=== PATIENT | male | born 1950 | race Caucasian/White ===

== ENCOUNTER 2020-08-03 01:15 | Day surgery (SDC) | payer MEDICARE, SELFPAY ==
[2020-07-22 10:58] VITALS: BMI 25.2
[2020-08-03 11:55] VITALS: BP 142/91; PULSE 79; RESP 16; TEMP 36.4; O2SAT 100; BMI 23.7
[2020-08-03] MEDS: LACTATED RINGERS 1,000 ML 150 ML IV CONT (12:06)
[2020-08-03 12:15] LABS: Glucose Point of Care 100 (65-105)
--- NOTE | 2020-08-03 12:47 | WPDANESEPPF ---
Anes - Initial Pre Proc Eval Procedure: Operation Date: 08/03/20 12:30 Proposed Procedures p Screening Colonoscopy - Jerel Borja MD Date/Time: 08/03/20 12:47 Surgeon: Jerel Borja MD Pre Op Diagnosis: neoplasm screen Patient Data Age: 69 Gender: M Height: 5 ft 8 in Weight: 70.8 kg Last Vital Signs Temp 36.4 C 08/03/20 11:55 Pulse 79 08/03/20 11:55 Resp 16 08/03/20 11:55 BP 142/91 H 08/03/20 11:55 Pulse Ox 100 08/03/20 11:55 Allergies Allergy/AdvReac Type Severity Reaction Status Date / Time Sulfa (Sulfonamide Allergy Intermediate Hives Verified 08/03/20 11:52 Antibiotics) Home Medications Medication Instructions Recorded Confirmed Type ascorbic acid (vitamin C) 1,000 mg 1 mg PO DAILY 07/01/19 07/22/20 History tablet aspirin 81 mg tablet,delayed 81 mg PO DAILY 07/01/19 07/22/20 History release desoximetasone 0.25 % topical cream 1 applic TOPICAL BID PRN 07/01/19 07/22/20 History omega-3 fatty acids 1,000 mg 1,000 mg PO BID 07/01/19 07/22/20 History capsule cholecalciferol (vitamin D3) 25 25 mcg PO DAILY 01/01/20 07/22/20 History mcg (1,000 unit) tablet lactobacillus combination no.8 3 3,000 mmu cells PO DAILY 01/01/20 07/22/20 History billion cell capsule rvkaifcn-feu-qaxhz acid 300 1 tablet PO DAILY 01/01/20 07/22/20 History mcg-lycopene 600 mcg-lutein 300 mcg tablet alprazolam 0.5 mg tablet 0.5 mg PO TID PRN #90 tablet 02/09/20 07/22/20 Rx empagliflozin 10 mg tablet 10 mg PO DAILY #90 tablet 04/04/20 07/22/20 Rx lisinopril 10 mg tablet 10 mg PO DAILY #90 tablet 05/25/20 08/03/20 Rx blood sugar diagnostic #360 each 06/02/20 07/19/20 Rx atorvastatin 80 mg PO HS 07/22/20 07/22/20 History carvedilol 25 mg PO BID 07/22/20 08/03/20 History glimepiride 2 mg PO QAM 07/22/20 07/22/20 History sitagliptin-metformin [Janumet] 1 tablet PO BID 07/22/20 07/22/20 History sodium,potassium,mag sulfates See Rx Instructions .ROUTE 07/22/20 Rx [Suprep Bowel Prep Kit] .COMPLEX #1 ml Laboratory Tests 08/03/20 12:10 POC Capillary Glucose 100 mg/dl mg/dl (65-105) Patient hx anesthesia problems: none Family hx anesthesia problems: none [facility] Surgical History Surgical History (Updated 08/03/20 @ 12:47 by Connor Cantrell MD) Hx of CABG Family History Family History Mother Carcinoma of colon Father Family history of dementia Acute myocardial infarction Grandparent Family history of heart disease in male family member before age 55 Social History Social History Smoking packs per day: 2 Smoking cigarettes per day: 40.0 Years smoked: 7 Smoking pack-years: 14.00 Smoking status: Current every day smoker Tobacco type: cigarettes Smoking end date: 06/24/89 Alcohol intake: never Substance use: never Substance use type: does not use Living arrangements: with family Spiritual care concerns: No Anes - Eval Final PreProcedure Day of Procedure 08/03/20 12:47 Patient weight: normal Heart: regular rate and rhythm Lungs: clear to auscultation Airway: Mallampati scale class II Neurological: alert and oriented Last oral intake: >/= 8 hours ASA classification: III Emergent: no Anesthetic plan: proceed Anesthesia type and monitoring: general GIVS and standard monitoring Informed Consent: The patient's anesthetic plan and its attendant risks and benefits were discussed with the patient/family/POA. Questions were solicited and answers provided to the satisfaction of the patient/family/POA.
--- NOTE | 2020-08-03 13:38 | PM.HPGS ---
History of Present Illness History of Present Illness Consent: Risks, benefits, and alternatives have been discussed and questions answered. Patient agrees to proceed with procedure. Chief complaint: neoplasm screen Narrative: Robert Escalera is a 69 year old male here for screening colonoscopy Review of Systems Constitutional: Constitutional: Denies headache(s) and Denies weakness Eyes: Eyes: Denies blurry vision ENT: Reports Normal hearing present, Denies headache(s) and Denies neck pain Cardiovascular: Cardiovascular: Denies chest pain and Denies dyspnea Respiratory: Respiratory: Denies dyspnea Gastrointestinal: Gastrointestinal: Reports no additional gastrointestinal complaints Genitourinary: Genitourinary: Denies dysuria Musculoskeletal: Musculoskeletal: Denies neck pain Integumentary/Breasts: Skin/Breast: Denies dry skin Neurologic: Reports Normal hearing present, Denies headache(s) and Denies weakness Psychiatric: Psychiatric: Denies anxiety Endocrine: Endocrine: Denies change in body appearance Hematologic/Lymphatic: Hematologic/Lymphatic: Denies easy bleeding Allergic/Immunologic: Allergic/Immunologic: Denies urticaria [facility] Surgical History Surgical History (Updated 08/03/20 @ 12:47 by Connor Cantrell MD) Hx of CABG Family History Family History Mother Carcinoma of colon Father Family history of dementia Acute myocardial infarction Grandparent Family history of heart disease in male family member before age 55 Social History Social History Smoking packs per day: 2 Smoking cigarettes per day: 40.0 Years smoked: 7 Smoking pack-years: 14.00 Smoking status: Current every day smoker Tobacco type: cigarettes Smoking end date: 06/24/89 Alcohol intake: never Substance use: never Substance use type: does not use Living arrangements: with family Spiritual care concerns: No Meds Home Medications and Allergies Home Medications Medication Instructions Recorded Confirmed Type ascorbic acid (vitamin C) 1,000 mg 1 mg PO DAILY 07/01/19 07/22/20 History tablet aspirin 81 mg tablet,delayed 81 mg PO DAILY 07/01/19 07/22/20 History release desoximetasone 0.25 % topical cream 1 applic TOPICAL BID PRN 07/01/19 07/22/20 History omega-3 fatty acids 1,000 mg 1,000 mg PO BID 07/01/19 07/22/20 History capsule cholecalciferol (vitamin D3) 25 25 mcg PO DAILY 01/01/20 07/22/20 History mcg (1,000 unit) tablet lactobacillus combination no.8 3 3,000 mmu cells PO DAILY 01/01/20 07/22/20 History billion cell capsule nmkwauwf-ynd-eqggx acid 300 1 tablet PO DAILY 01/01/20 07/22/20 History mcg-lycopene 600 mcg-lutein 300 mcg tablet alprazolam 0.5 mg tablet 0.5 mg PO TID PRN #90 tablet 02/09/20 07/22/20 Rx empagliflozin 10 mg tablet 10 mg PO DAILY #90 tablet 04/04/20 07/22/20 Rx lisinopril 10 mg tablet 10 mg PO DAILY #90 tablet 05/25/20 08/03/20 Rx blood sugar diagnostic #360 each 06/02/20 07/19/20 Rx atorvastatin 80 mg PO HS 07/22/20 07/22/20 History carvedilol 25 mg PO BID 07/22/20 08/03/20 History glimepiride 2 mg PO QAM 07/22/20 07/22/20 History sitagliptin-metformin [Janumet] 1 tablet PO BID 07/22/20 07/22/20 History sodium,potassium,mag sulfates See Rx Instructions .ROUTE 07/22/20 Rx [Suprep Bowel Prep Kit] .COMPLEX #1 ml Allergies Allergy/AdvReac Type Severity Reaction Status Date / Time Sulfa (Sulfonamide Allergy Intermediate Hives Verified 08/03/20 11:52 Antibiotics) Vital Signs Vital Signs - 24 hr 08/03/20 11:55 Temperature 97.6 F Pulse Rate 79 Respiratory Rate 16 Blood Pressure 142/91 H Pulse Oximetry 100 Exam Const: General: comfortable and no acute distress HENMT: General nose exam: Normal nares present Eyes: General: appearance normal, both eyes and all related structures Neck: Neck: no JVD Resp: Aus
[2020-08-03 14:03] VITALS: BP 119/64; PULSE 81; RESP 23; O2SAT 97
[2020-08-03 14:13] VITALS: BP 125/77; PULSE 80; RESP 25; O2SAT 98
[2020-08-03 14:23] VITALS: BP 139/77; PULSE 80; RESP 26; O2SAT 97
== END 2020-08-03 14:44 | disposition home or self-care (01) ==
PROVIDERS: PCP Internal Medicine; Visit Provider Internal Medicine Gastroenterology
PROC: 0DJD8ZZ Inspection of Lower Intestinal Tract, Via Natural or Artificial Opening Endoscopic (ICD-10-PCS; CPT 45378; principal; 2020-08-03 12:30)
DX: Z12.11 Encounter for screening for malignant neoplasm of colon (principal); K63.5 Polyp of colon; K57.30 Diverticulosis of large intestine without perforation or abscess without bleeding; Z79.84 Long term (current) use of oral hypoglycemic drugs; Z95.1 Presence of aortocoronary bypass graft; Z79.82 Long term (current) use of aspirin; F17.210 Nicotine dependence, cigarettes, uncomplicated
CPT/HCPCS: 45385; 82948; 88305; J2704; J7120

== ENCOUNTER 2022-10-02 03:56 | Inpatient (IN) | payer MEDICARE, SELFPAY ==
[2022-10-02] VITALS (37 sets, daily range): BP systolic 105–179; BP diastolic 48–119; PULSE 64–181; RESP 16–29; TEMP 35.8–37.2; O2SAT 90–100; BMI 22.0
--- NOTE | ~2022-10-02 | MR_ITS ---
EXAMINATION: MR brain/brain stem wo/w con DATE: 10/02/2022 15:21 INDICATION: Aphasia. TECHNIQUE: Magnetic resonance imaging (MRI) of the brain and brainstem was performed without and with 14 mL MultiHance intravenous contrast. COMPARISON: Head CT 10/02/2022 FINDINGS: There are scattered areas of nonspecific increased T2-weighted signal intensity in the cere bral white matter, which is within normal limits for the patient's age. There is no intracranial hemo rrhage, acute infarction, or abnormal intracranial mass lesion. The ventricles are normal in size. Th e mastoid air cells are normal. The orbits are normal. There is mild mucosal thickening in the [place]ia sinuses. IMPRESSION: 1. Normal aging brain. Reviewed, dictated and finalized at location A. IMPRESSION: 1. Normal aging brain.
--- NOTE | ~2022-10-02 | XR_ITS ---
Portable chest x-ray Comparison: None Clinical History: Shortness of breath Findings: Lungs are clear, without focal consolidation or pleural effusion. Cardiomediastinal silho uette is unremarkable, status post CABG. Bones and soft tissues are unremarkable. Impression: Clear lungs. Status post CABG. Reviewed, dictated and finalized at location . Impression: Clear lungs. Status post CABG.
--- NOTE | ~2022-10-02 | CT_ITS ---
Non-contrast Head CT History: Seizure Technique: Axial non-contrast imaging of the brain was performed. Dose reduction technique was used on this scan by utilizing automated exposure control and iterative reconstruction technique. The dose -length product (DLP) was 756.67 mGy-cm. Findings: There is no evidence of intracranial hemorrhage, mass lesion, or acute infarct. Brain par enchyma appears normal. The ventricles and subarachnoid spaces are normal in size. The calvarium ap pears normal. The visualized paranasal sinuses and mastoid air cells are clear. Impression: No significant abnormality seen. Reviewed, dictated and finalized at location . Impression: No significant abnormality seen.
--- NOTE | ~2022-10-02 | US_ITS ---
US right upper quadrant INDICATION: Hyperammonemia PROCEDURE: Realtime right upper abdominal ultrasound. COMPARISON: No prior studies for comparison. FINDINGS: Pancreas is not well visualized. Liver echotexture is normal without focal mass or intrahe patic biliary dilatation. There is normal directional flow in the portal vein. Gallbladder is surgically absent. Common bile duct measures 7 mm. IMPRESSION: 1: Unremarkable limited abdominal ultrasound. Reviewed, dictated and finalized at location L.
--- NOTE | 2022-10-02 03:57 | PC.NURSE ---
0357 pt. given 2 mg ivp Ativan vorb
--- NOTE | 2022-10-02 04:01 | ECG_ITS ---
Measurements Intervals [place] Rate: 115 P: DC: 0 QRS: 61 QRSD: 90 T: 143 QT: 288 QTc: 399 Interpretive Statements ATRIAL FIBRILLATION WITH RAPID VENTRICULAR RESPONSE ST AND T-WAVE ABNORMALITY CONSIDER SUBENDOMYOCARDIAL ISCHEMIA ABNORMAL ECG NO PREVIOUS ECG AVAILABLE FOR COMPARISON Electronically Signed On 10-02-2022 16:15:09 CDT by Thanh Barfield M.D.
[2022-10-02 04:06] LABS: Glucose Point of Care 433 mg/dl (65-105)
[2022-10-02] MEDS: dilTIAZem HCl INJ 25 MG/5 ML VIAL 10 MG IV PUSH (04:10)
--- NOTE | 2022-10-02 04:13 | PC.NURSE ---
pt.. getting 1L NS from ems.
--- NOTE | 2022-10-02 04:17 | ED.SOB ---
HPI - SOB/Dyspnea General Chief Complaint: Shortness of Breath/Dyspnea Stated Complaint: choking Time Seen by Provider: 10/02/22 04:01 History of Present Illness HPI Narrative: 72-year-old male with history of diabetes, hypertension, cardiac bypass x5 presenting from home due to shortness of breath. History obtained from paramedics as well as who witnessed the event, per she heard him brushing his teeth and then start making strange gasping noises, she was able to get him to open the door and he was still gasping so she called an ambulance for him. Per EMS, patient had been feeling much better on the ambulance, talking normally, and then upon arrival here, patient started having a seizure. Per , he had self diagnosed himself with a UTI because he was having some trouble urinating, and have been started on Keflex by his doctor which he had finished. No history of seizures. Per , he does have prescription for anxiolytics but he does not take them frequently. Related Data Home Medications Medication Instructions Recorded Confirmed ascorbic acid (vitamin C) 1,000 mg 1 mg PO DAILY 07/01/19 04/24/22 tablet aspirin 81 mg tablet,delayed 81 mg PO DAILY 07/01/19 04/24/22 release (Aspir-) desoximetasone 0.25 % topical cream 1 applic topical BID PRN Rash 07/01/19 04/24/22 omega-3 fatty acids 1,000 mg 1,000 mg PO BID 07/01/19 04/24/22 capsule (Fish Oil Concentrate) cholecalciferol (vitamin D3) 25 25 mcg PO DAILY 01/01/20 04/24/22 mcg (1,000 unit) tablet lactobacillus combination no.8 3 3,000 mmu cells PO DAILY 01/01/20 04/24/22 billion cell capsule (Adult Probiotic) kutzccvg-nta-urgfn acid 300 1 tablet PO DAILY 01/01/20 04/24/22 mcg-lycopene 600 mcg-lutein 300 mcg tablet (Centrum Silver Ultra Men's) Allergies Allergy/AdvReac Type Severity Reaction Status Date / Time Sulfa (Sulfonamide Allergy Intermediate Hives Verified 10/02/22 05:30 Antibiotics) Review of Systems Review of Systems: ROS unobtainable: Yes unobtainable due to mental status PMFSH Past Medical History Medical History (Updated 10/02/22 @ 06:03 by Bing Winn MD) Type 2 diabetes mellitus without complications Surgical History Surgical History Hx of CABG Family History Family History Mother Carcinoma of colon Father Family history of dementia Acute myocardial infarction Grandparent Family history of heart disease in male family member before age 55 Social History Social History Smoking packs per day: 2 Smoking cigarettes per day: 40.0 Years smoked: 7 Smoking pack-years: 14.00 Smoking status: Former smoker Tobacco type: cigarettes Second hand tobacco smoke exposure: Yes Smoking end date: 06/24/89 Alcohol intake: never Substance use: never Substance use type: does not use Lack of Transportation: No Lack of Food: Never True Current Housing: I Have Housing Concerned About Future Housing: No Difficulty Paying Gas/Electric Bills: No Difficulty Paying for Meds: No Currently Unemployed: No Education: Trade/Vocational Certificate Difficulty w/ Childcare or Family Care: No Living arrangements: with family Spiritual care concerns: No Exam Narrative: EXAMINATION OF ORGAN SYSTEMS/BODY AREAS: Constitutional: Vital signs per nursing GENERAL: Actively seizing and gasping HEAD: Normal with no signs of head trauma. EYES: PERRL, conjunctiva normal ENT: Some bloody oral secretions LUNGS: Labored respirations/gasping HEART: Irregularly irregular and tachycardic ABD: [Soft], [nontender to palpation] EXT: Rhythmic movements/jerking SKIN: [No rashes or lesions.] NEURO: Actively seizing Course Vital Signs Vital signs: Vital Signs Temperature 98.1 F 10/02/22 03:52 Pulse Rate 171 H 10/02/22 03:52 Respiratory
[2022-10-02] MEDS: dilTIAZem 100 MG/100 ML 100 MG/100 ML BAG IV CONT (04:27)
[2022-10-02 04:43] LABS: Basophils Absolute Auto 0.1 K/mm3 (0.0-0.1); Basophils Percent Auto 0.7 % (0.2-1.2); Eosinophils Absolute Auto 0.5 K/mm3 (0-0.3); Eosinophils Percent Auto 3.4 % (0-4.4); Hematocrit 43.5 % (42.0-52.0); Hemoglobin 13.8 g/dL (14.0-18.0); Immature Granulocyte Absolute 0.08 K/mm3 (0.00-0.031); Immature Granulocyte Percent A 0.6 % (0-0.5); Lymphocytes Absolute Auto 4.97 K/mm3 (0.9-3.2); Lymphocytes Percent Auto 36.6 % (18.3-44.2); Mean Corpuscular HGB Conc 31.7 g/dl (32-36); Mean Corpuscular Hemoglobin 30.1 pg (26-34); Mean Corpuscular Volume 94.8 fl (80-100); Mean Platelet Volume 10.4 fl (7.4-10.4); Monocytes Absolute Auto 1.5 K/mm3 (0.1-0.6); Monocytes Percent Auto 11.1 % (2.6-8.5); Neutrophils Absolute Auto 6.5 K/mm3 (1.3-6.7); Neutrophils Percent Auto 47.6 % (45.5-73.1); Platelet Count Result 405 k/mm3 (150-375); Red Blood Count 4.59 M/mm3 (4.6-6.20); Red Cell Distribution Width 13.1 % (11.5-14.5); White Blood Count 13.6 K/mm3 (4.5-10.0)
[2022-10-02 04:50] LABS: Acetaminophen < 10 ug/mL (10-30); Ammonia 216 umol/L (9-30); Ethanol < 10 mg/dL (<10); Salicylate < 1.0 mg/dL (2-20)
[2022-10-02 04:54] LABS: Appearance Urine Clear (Clear); Bacteria Urine None Seen /hpf; Bilirubin Urine Negative (Negative); Blood Urine 3+ (Negative); Color Urine Yellow (Yellow); Glucose Urine UA 3+ mg/dL (Negative); Ketones Urine Negative (Negative); Leukocyte Esterase Ur 1+ LEU/UL (Negative); Need Manual Microscopic Reviewed; Nitrate Urine Negative (Negative); Non Pathogenic Casts 0-2; Protein Urine 2+ mg/dL (Negative); RBC Urine 21-50 /hpf (0-2); Specific Grav Ur 1.033 (1.001-1.035); Squamous Epithelial Cell Urine None seen /hpf (Few); Urobilinogen Urine 0.2 mg/dL (<2.0); WBC Urine >100 /hpf; pH Urine 6.5 (5.0-9.0)
[2022-10-02 04:57] LABS: Add Urine Microscopic? YES; Amphetamine Screen Urine Negative (Negative); Barbiturate Screen Urine Negative (Negative); Benzodiazepines Screen Urine Negative (Negative); Cannabinoid Screen Urine Negative (Negative); Cocaine Screen Urine Negative (Negative); Methadone Screen Urine Negative (Negative); Opiate Screen Urine Negative (Negative); Phencyclidine Screen Urine Negative (Negative)
[2022-10-02 05:03] LABS: Lactic Acid Reflex 10.4 mmol/L (0.7-2.0)
[2022-10-02 05:06] LABS: Albumin Level 4.2 g/dL (3.5-5.1); Alkaline Phosphatase 126 U/L (38-126); Anion Gap 27 mmol/L (8-16); Bilirubin,Total 0.7 mg/dL (0.2-1.3); Blood Urea Nitrogen 8 mg/dL (9-20); Calcium 8.8 mg/dL (8.4-10.2); Carbon Dioxide 12 mmol/L (22-30); Chloride 99 mmol/L (98-107); Estimated Glomerular Filt Rate > 60; Glucose 422 mg/dL (65-110); Potassium 2.9 mmol/L (3.4-5.0); Sodium 138 mmol/L (137-145)
[2022-10-02 05:22] LABS: Troponin I < 0.012 ng/mL (0.000-0.034)
--- NOTE | 2022-10-02 05:38 | ECG_ITS ---
Measurements Intervals [place] Rate: 111 P: 40 MO: 137 QRS: 45 QRSD: 90 T: 90 QT: 344 QTc: 468 Interpretive Statements SINUS TACHYCARDIA NONSPECIFIC ST & T-WAVE ABNORMALITY BORDERLINE ECG COMPARED TO ECG 10/02/2022 04:01:43 SINUS TACHYCARDIA NOW PRESENT Electronically Signed On 10-02-2022 16:15:31 CDT by Thanh Barfield M.D.
[2022-10-02 05:39] LABS: Alanine Aminotransferase 58 U/L (6-50); Aspartate Amino Transferase 42 U/L (17-59)
[2022-10-02] MEDS: POTASSIUM CHLORIDE INJ 40 MEQ in SODIUM CHLORIDE 0.9% IV 500 ML 130 MEQ IVPB (06:14)
--- NOTE | 2022-10-02 07:42 | ADMGEN ---
This patient, Robert Escalera, was admitted to IMU Room 232-01. Patient/family oriented to hospital policies and general routines including ID bracelet, bed and alarms, visiting hours, pain management, procedures, bathroom and other care routines, personal items, smoking policy, room service/diet, and visiting hours. Information on how to activate the Rapid Response Team has been discussed. Patient/Family are encouraged to report perceived risks to care and to ask questions if they do not understand what they are told or what they should do.
[2022-10-02 07:45] LABS: Reflex Lactic Acid Yes or No Add Lactic
[2022-10-02 08:46] LABS: Lactic Acid 1.2 mmol/L (0.7-2.0)
[2022-10-02 09:00] LABS: Glucose Point of Care 351 mg/dl (65-105)
--- NOTE | 2022-10-02 10:34 | WPDNEURCNPN ---
Assessment and Plan Assessment and plan (1) Seizure: Code(s): R56.9 - Unspecified convulsions Status: Acute (2) Atrial fibrillation with RVR: Code(s): I48.91 - Unspecified atrial fibrillation Status: Acute (3) Acute UTI: Code(s): N39.0 - Urinary tract infection, site not specified Status: Acute (4) Type 2 diabetes mellitus without complications: Qualifiers: Diabetes mellitus terminal manager insulin use: without custodial use Qualified Code(s): E11.9 - Type 2 diabetes mellitus without complications Code(s): E11.9 - Type 2 diabetes mellitus without complications Status: Acute (5) Benign essential hypertension: Code(s): I10 - Essential (primary) hypertension Status: Acute (6) Mixed hyperlipidemia: Code(s): E78.2 - Mixed hyperlipidemia Status: Acute Plan Robert Escalera is a 72 year old male with a history of hypertension, type 2 diabetes mellitus, coronary artery disease s/p CABG who presented initially due to shortness of breath, but found to be seizing and in atrial fibrillation in the ED. Also noted to have a UTI. Etiology of seizure is unknown, but could be provoked due to underlying UTI or new acute infarct. - MRI brain w/o contrast - Routine EEG - Continue Keppra 750mg BID Consult date: 10/02/22 Reason for consult: Seizure HPI: Robert Escalera is a 72 year old male with a history of hypertension, type 2 diabetes mellitus, coronary artery disease s/p CABG who presented initially due to shortness of breath. Patient developed difficulty breathing while brushing his teeth. called EMS at that time and patient was brought to [facility] ED. In the ED, patient was noted to have a seizure. Patient was given a dose of Ativan which stopped the seizure. Patient does not have any prior history of seizures. In the ED, his CT head was normal. His EKG showed atrial fibrillation with RVR. Patient did not have a prior known history of atrial fibrillation. Patient was eventually converted to sinus rhythm. His UA was concerning for UTI. Since admission, patient has had several episodes concerning for seizure described as right facial pulling and unresponsiveness, lasting less than a minute. He was given a Keppra 1000mg load and started on maintenance Keppra. Patient reports having some word finding difficulties still. Review of Systems Constitutional: Constitutional: Reports no additional constitutional complaints Eyes: Eyes: Reports no additional eye complaints ENT: Reports system reviewed and no additional complaints, except as documented Cardiovascular: Cardiovascular: Reports no additional cardiovascular complaints Respiratory: Respiratory: Reports no additional respiratory complaints Gastrointestinal: Gastrointestinal: Reports no additional gastrointestinal complaints Genitourinary: Comments: urinary retention Musculoskeletal: Musculoskeletal: Reports no additional musculoskeletal complaints Integumentary/Breasts: Skin/Breast: Reports system reviewed and no additional complaints, except as docu Neurologic: Reports as per HPI Psychiatric: Psychiatric: Reports no additional psychiatric complaints PMFSH Past Medical History Medical History Type 2 diabetes mellitus without complications Surgical History Surgical History Hx of CABG Family History Family History Mother Carcinoma of colon Father Family history of dementia Acute myocardial infarction Grandparent Family history of heart disease in male family member before age 55 Social History Social History Smoking packs per day: 3 Smoking cigarettes per day: 60.0 Years smoked: 10 Smoking pack-years: 30.00 Smoking status: Former smoker Tobacco type: cigarettes Secon
--- NOTE | 2022-10-02 10:41 | PM.IMHP ---
H&P: HPI History of Present Illness Date/Time: 10/02/22 10:41 Chief Complaint: Shortness of breath Narrative: 72-year-old male with history of diabetes, hypertension, cardiac bypass x5 presenting from home due to shortness of breath.? History taken from his and sister at bedside. He has stopped taking his medication for some time all. Recently has been having urinary issue with trouble urinating and was given Keflex which he has already finished. Yesterday his for impression use to eat and started making strange noises and reported to be gasping for air. The patient was having some twitching movement in his face and eyes which lasted for few seconds. Paramedics arrived and brought to the ER. He had similar episode down the ER again. CT head was negative. He was noted to have atrial fibrillation with rapid ventricular rate urinary retention. He was given 1 dose of Ativan with subsequent resolution of the symptom. He does have prescription for anxiolytic but has not been taking them frequently even in the past. Review of Systems Review of Systems: - CONSTITUTIONAL: Denies weight loss, fever and chills. - HEENT: Denies changes in vision and hearing - RESPIRATORY: Reports sOB and denies cough. - CV: Denies palpitations and CP. - GI: Denies abdominal pain, nausea, vomiting and diarrhea. - : Denies dysuria and urinary frequency. - MSK: Denies myalgia and joint pain. - SKIN: Denies rash and pruritus. - NEUROLOGICAL: Denies headache and syncope. - PSYCHIATRIC: Denies recent changes in mood. Denies anxiety and depression. [facility] Past Medical History Medical History (Updated 10/02/22 @ 06:03 by Bing Winn MD) Type 2 diabetes mellitus without complications Surgical History Surgical History Hx of CABG Family History Family History Mother Carcinoma of colon Father Family history of dementia Acute myocardial infarction Grandparent Family history of heart disease in male family member before age 55 Social History Social History Smoking packs per day: 3 Smoking cigarettes per day: 60.0 Years smoked: 10 Smoking pack-years: 30.00 Smoking status: Former smoker Tobacco type: cigarettes Second hand tobacco smoke exposure: Yes Smoking end date: 06/24/89 Alcohol intake: never Substance use: never Substance use type: does not use Lack of Transportation: No Lack of Food: Never True Current Housing: I Have Housing Concerned About Future Housing: No Difficulty Paying Gas/Electric Bills: No Difficulty Paying for Meds: No Currently Unemployed: No Education: Trade/Vocational Certificate Difficulty w/ Childcare or Family Care: No Living arrangements: with family Spiritual care concerns: No Meds Home Medications and Allergies Home Medications Medication Instructions Recorded Confirmed Type ascorbic acid (vitamin C) 1,000 mg 1,000 mg PO DAILY 07/01/19 10/02/22 History tablet aspirin 81 mg tablet,delayed 81 mg PO DAILY 07/01/19 10/02/22 History release (Aspir-) omega-3 fatty acids 1,000 mg 1,000 mg PO BID 07/01/19 10/02/22 History capsule (Fish Oil Concentrate) cholecalciferol (vitamin D3) 25 25 mcg PO DAILY 01/01/20 10/02/22 History mcg (1,000 unit) tablet lactobacillus combination no.8 3 3,000 mmu cells PO DAILY 01/01/20 10/02/22 History billion cell capsule (Adult Probiotic) gnffuuqy-hzb-elnqh acid 300 1 tablet PO DAILY 01/01/20 10/02/22 History mcg-lycopene 600 mcg-lutein 300 mcg tablet (Centrum Silver Ultra Men's) empagliflozin 25 mg tablet 25 mg PO DAILY #90 tabs 04/24/22 10/02/22 Rx (Jardiance) glimepiride 4 mg tablet 2 mg PO QAM #45 tabs 05/04/22 10/02/22 Rx lisinopril 10 mg tablet 10 mg PO DAILY #90 tabs 05/04/22 10/02/22 Rx carvedilol 25 mg tablet 25 mg
--- NOTE | 2022-10-02 10:54 | PC.NURSE ---
Family came out into the naqvi and asked me to come in, saying they thought patient was having a stroke. When I arrived the patient was unresponsive, eyes opened, equal, but glazed over. right eye lid, cheek, and corner of mouth was twitching. no movement noticed in either hands. Feet unable to be immediately visualized under blanket. I turned patient on right side to protect air way. Seizure stopped within 15 seconds of me being in the room. Doctor Reardon notified.
[2022-10-02] MEDS: levETIRAcetam 1000MG/NACL100ML 1,000 MG/100 ML BAG 400 MG IVPB (11:25)
--- NOTE | 2022-10-02 11:30 | PCSTNOTE ---
Patient is on hold at nursing request until after being seen by physician/neurology secondary to risk of seizure/CVA during bedside swallow evaluation.
[2022-10-02 11:34] LABS: Magnesium 2.4 mg/dL (1.6-2.3)
--- NOTE | 2022-10-02 11:51 | ECHO_ITS ---
Patient Info Name: Robert Escalera Age: 72 years : 1950 Gender: Male Ht: 67 in Wt: 140 lbs BSA: 1.73 m2 HR: 77 bpm BP: 114 / 59 mmHg Heart Rhythm: Sinus Rhythm Exam Date: 10/02/2022 12:59 PM Exam Location: [facility] Patient Status: Inpatient Admit Date: 10/02/2022 Staff Ordering Physician: Thanh Barfield MD Grades 9 Thru 12 Visiting Teacher: Bucky Turner, KALLIE, RT Attending Provider: Carl Hood MD Referring Physician: Lico HOLLAND; Exam Type: CA echo dop color flow w con Study Info Indications - CAD I48.1 - Persistent atrial fibrillation Complete two-dimensional, color flow and Doppler transthoracic echocardiogram is performed with contrast to opacify the left ventricle and to improve the deliniation of the left ventricle endocardial borders. Strain analysis performed. Summary 1. Left ventricular chamber dimension is normal. 2. Left ventricular systolic function is normal, estimated at 55-60%. 3. There is mildly increased left ventricular wall thickness. 4. The left ventricular diastolic function is grade I diastolic dysfunction. 5. Global longitudinal strain is mildly elevated at -14 %. 6. There is trace mitral valve regurgitation. 7. There is no aortic valve stenosis. Left Ventricle Left ventricular chamber dimension is normal. Left ventricular systolic function is normal, estimated at 55-60%. There is mildly increased left ventricular wall thickness. The left ventricular diastolic function is grade I diastolic dysfunction. Global longitudinal strain is mildly elevated at -14 %. Right Ventricle Right ventricular chamber dimension is normal. Right ventricular systolic function is normal. Left Atria Left atrial chamber dimension is mildly enlarged. Right Atria Right atrial chamber dimension is normal. Aortic Valve The aortic valve is trileaflet. There is mild aortic valve sclerosis. There is no aortic valve stenosis. There is no aortic valve regurgitation. Pulmonic Valve The pulmonic valve is not well visualized. Mitral Valve The mitral valve has normal leaflets. There is trace mitral valve regurgitation. The mitral valve annulus is mildly calcified. Tricuspid Valve The tricuspid valve leaflets are normal. There is trace tricuspid valve regurgitation. Unable to estimate PA systolic pressure due to poor spectral resolution of tricuspid regurgitant jet velocity. Pericardium/Pleural The pericardium appears normal. There is no pericardial effusion. Inferior Vena Cava Normal inferior vena cava with >50% collapse upon inspiration consistent with normal right atrial pressure, 5 mmHg. Aorta The aortic root size at the sinus of Valsalva is normal. There is moderate aortic atherosclerosis. Left Ventricular Outflow Tract Name Value Normal LVOT 2D LVOT Diameter 2.00 cm LVOT Doppler LVOT Peak Gradient 5 mmHg LVOT Mean Gradient 2 mmHg LVOT VTI 21.08 cm LVOT VTI/AV VTI Ratio 0.76 LVOT Stroke Volume 66.40 ml LVOT
[2022-10-02] MEDS: carvediloL 25 MG TABLET PO ×2 (12:02→21:33)
[2022-10-02 12:13] LABS: Hemoglobin A1C 10.4 % (<5.7)
[2022-10-02] MEDS: INSULIN ASPART (*BKC) 100 UNITS/ML SUB-Q ×2 (12:48→17:44)
[2022-10-02] MEDS: PERFLUTREN LIPID MICROSPHERES 1.5 ML VIAL DILUTED TO 10 ML TOTAL VOLUME IV PUSH (13:09)
--- NOTE | 2022-10-02 13:10 | IVDEFINITY ---
Prior to administration of IV Definity the patient was educated on the risks and benefits of the imaging enhancing agent including potential adverse side effects. The patient verbalized understanding. Allergies were verified. No exclusion criteria were identified and at least one of the following inclusion criteria were met: 1) physician request, 2) patient technically difficult to image (per the [place] [employer] guidelines of two or more segments not discernable within the apical view), or 3) questionable left ventricular function. ?
--- NOTE | 2022-10-02 13:33 | PM.CNCAR ---
Assessment and Plan Assessment and plan (1) Atrial fibrillation with RVR: Code(s): I48.91 - Unspecified atrial fibrillation Status: Acute Assessment and Plan: New diagnosis paroxysmal atrial fibrillation with rapid ventricular response currently maintaining sinus rhythm. CHADS2 Vasc score 4. Systemic anticoagulation advised. Eliquis 5 mg twice daily or Xarelto 20 mg at bedtime would be advised. However, given new diagnosis of recent seizure activity this will place patient at increased bleeding complication risk but if able to control seizure activity risk may be reasonable. Discussed with patient and his . Will hold off on initiating systemic anticoagulation for the time being to further neurologic workup is complete including MRI. Anticipate will initiate systemic anticoagulation prior to discharge as patient is at elevated risk for embolic stroke. We discussed the pathophysiology and management strategy. Atrial fibrillation a consequence of presentation with underlying urinary tract infection, seizures, noncompliance with medications, hypokalemia and given his history of CAD status post CABG, hypertension, diabetes mellitus and age. however, likelihood of recurrence is high and as such appropriate medical therapy and systemic anticoagulation advised. Certainly, discontinuation of carvedilol on his own as an outpatient with increased risk for any tachyarrhythmia although atrial fibrillation is a new diagnosis. Carvedilol 25 mg twice daily resumed. Will monitor patient response on telemetry. Further recommendation to follow. 2D echocardiogram personally reviewed (2) Acute hypokalemia: Code(s): E87.6 - Hypokalemia Status: Acute Assessment and Plan: Potassium supplementation has been provided. Recheck BMP. Monitor closely. (3) Seizure: Code(s): R56.9 - Unspecified convulsions Status: Acute Assessment and Plan: Management per Neurology. Patient stable on Keppra. Further workup underway. MRI pending. (4) CAD (coronary artery disease): Code(s): I25.10 - Atherosclerotic heart disease of [place] coronary artery without angina pectoris Status: Acute Assessment and Plan: Troponin negative presentation. Patient denies anginal symptoms. 2D echocardiogram reviewed personally EF preserved 60%. Patient is not currently decompensated heart failure although he has a history of ischemic cardiomyopathy remotely. continue aspirin 81 mg daily, atorvastatin 80 mg at bedtime, carvedilol, and lisinopril. (5) Benign essential hypertension: Code(s): I10 - Essential (primary) hypertension Status: Acute Assessment and Plan: Stable at this time. Continue medical therapy with carvedilol 25 mg twice daily, lisinopril 10 mg daily (6) Mixed hyperlipidemia: Code(s): E78.2 - Mixed hyperlipidemia Status: Acute Assessment and Plan: Continue atorvastatin 80 mg at bedtime check lipid panel. Goal LDL less than 70. (7) Acute UTI: Code(s): N39.0 - Urinary tract infection, site not specified Status: Acute Assessment and Plan: treatment antibiotics and supportive care per primary service. He had significant urinary transient 1.4 L. Sarkar catheter placed. (8) Type 2 diabetes mellitus: Code(s): E11.9 - Type 2 diabetes mellitus without complications Status: Acute Assessment and Plan: Management per primary service. History of Present Illness History of Present Illness Consult date/time: Date of service: 10/02/22 13:33 Requesting physician: Aaron Reardon MD Consult reason: atrial fibrillation Reason For Visit: New SZ/UTI/Afib/RVR/Aphasia Narrative: Patient is a 72-year-old male with a past medical history significant for remote 5 vessel bypass surgery 2005, history of type 2 diabetes mellitus, hypertension, hyperlipidemia, remote tobacco abuse previously followed by
--- NOTE | 2022-10-02 14:45 | PCSTNOTE ---
Please refer to the Bedside Swallow Evaluation in the EMR. Please note, silent aspiration cannot be ruled out at bedside.
--- NOTE | 2022-10-02 14:49 | PCSTNOTE ---
Communication evlaluation will be scheduled for tomorrow in case patient has additional seizures or MRI shows something concerning. Also patient reports frustration today and he feels frustration has triggered seizures and a communication evaluation may trigger frustration and then seizure...
[2022-10-02] MEDS: OMEGA 3 POLYUNSAT FATTY ACIDS 1 GM CAP PO (17:44)
[2022-10-02 20:27] LABS: Glucose Point of Care 256 mg/dl (65-105)
[2022-10-02 20:27] LABS: Glucose Point of Care 267 mg/dl (65-105)
[2022-10-02] MEDS: levETIRAcetam IV 750 MG in DEXTROSE 5% 100 ML 430 MG IVPB (21:36)
[2022-10-03] VITALS (16 sets, daily range): BP systolic 92–118; BP diastolic 46–62; PULSE 64–80; RESP 16–20; TEMP 36.2–36.6; O2SAT 95–99
[2022-10-03 04:46] LABS: Basophils Absolute Auto 0.1 K/mm3 (0.0-0.1); Basophils Percent Auto 0.7 % (0.2-1.2); Eosinophils Absolute Auto 0.4 K/mm3 (0-0.3); Eosinophils Percent Auto 4.4 % (0-4.4); Hematocrit 35.6 % (42.0-52.0); Hemoglobin 11.8 g/dL (14.0-18.0); Immature Granulocyte Absolute 0.04 K/mm3 (0.00-0.031); Immature Granulocyte Percent A 0.4 % (0-0.5); Lymphocytes Absolute Auto 2.38 K/mm3 (0.9-3.2); Lymphocytes Percent Auto 24.3 % (18.3-44.2); Mean Corpuscular HGB Conc 33.1 g/dl (32-36); Mean Corpuscular Volume 90.6 fl (80-100); Mean Platelet Volume 9.8 fl (7.4-10.4); Monocytes Percent Auto 10.1 % (2.6-8.5); Neutrophils Absolute Auto 5.9 K/mm3 (1.3-6.7); Neutrophils Percent Auto 60.1 % (45.5-73.1); Platelet Count Result 303 k/mm3 (150-375); Red Blood Count 3.93 M/mm3 (4.6-6.20); Red Cell Distribution Width 13.2 % (11.5-14.5); White Blood Count 9.8 K/mm3 (4.5-10.0)
[2022-10-03 05:00] LABS: Alanine Aminotransferase 36 U/L (6-50); Albumin Level 2.9 g/dL (3.5-5.1); Alkaline Phosphatase 93 U/L (38-126); Anion Gap 3 mmol/L (8-16); Aspartate Amino Transferase 33 U/L (17-59); Bilirubin,Total 0.7 mg/dL (0.2-1.3); Blood Urea Nitrogen 6 mg/dL (9-20); Calcium 7.8 mg/dL (8.4-10.2); Carbon Dioxide 28 mmol/L (22-30); Chloride 105 mmol/L (98-107); Estimated CRCL calculation 102 ml/min; Estimated Glomerular Filt Rate > 60; Glucose 182 mg/dL (65-110); Potassium 3.6 mmol/L (3.4-5.0); Sodium 136 mmol/L (137-145)
[2022-10-03] MEDS: levETIRAcetam IV 750 MG in DEXTROSE 5% 100 ML 430 MG IVPB ×2 (08:15→21:18)
[2022-10-03] MEDS: CHOLECALCIFEROL 1,000 UNITS TABLET 1000 UNITS PO (08:20)
[2022-10-03] MEDS: ATORVASTATIN 40 MG TABLET 80 MG PO (08:20)
[2022-10-03] MEDS: ACIDOPHILUS/BULGARICUS CHEWABLE TABLET 1 TABLET PO (08:20)
[2022-10-03] MEDS: lisinopriL 10 MG TABLET PO (08:20)
[2022-10-03] MEDS: ASCORBIC ACID 500 MG TABLET 1000 MG PO (08:20)
[2022-10-03] MEDS: ACIDOPHILUS/BULGARICUS CHEWABLE TABLET 3 TABLET PO (08:20)
[2022-10-03] MEDS: OMEGA 3 POLYUNSAT FATTY ACIDS 1 GM CAP PO ×2 (08:20→16:12)
[2022-10-03] MEDS: OPTI-GEN TAB 1 TABLET PO (08:21)
[2022-10-03] MEDS: cefTRIAXone 2 GM/NS 100 ML 2 GM/100 ML BAG IVPB (08:28)
[2022-10-03] MEDS: INSULIN ASPART (*BKC) 100 UNITS/ML SUB-Q ×3 (08:39→16:11)
[2022-10-03] MEDS: ASPIRIN 81 MG ENTERIC TABLET PO (08:40)
[2022-10-03] MEDS: carvediloL 25 MG TABLET PO ×2 (08:44→21:17)
[2022-10-03 11:39] LABS: Glucose Point of Care 300 mg/dl (65-105)
--- NOTE | 2022-10-03 11:56 | PCSTNOTE ---
Communication Evaluation completed.
[2022-10-03 12:16] LABS: Glucose Point of Care 251 mg/dl (65-105)
--- NOTE | 2022-10-03 12:38 | WPDNEUROPN ---
Progress Note: A&P Assessment and Plan (1) Seizure: Code(s): R56.9 - Unspecified convulsions Status: Acute (2) Aphasia: Code(s): R47.01 - Aphasia Status: Acute (3) Atrial fibrillation with RVR: Code(s): I48.91 - Unspecified atrial fibrillation Status: Acute (4) Acute UTI: Code(s): N39.0 - Urinary tract infection, site not specified Status: Acute Plan Robert Escalera is a 72 year old male with a history of hypertension, type 2 diabetes mellitus, coronary artery disease s/p CABG who presented initially due to shortness of breath, but found to be seizing and in atrial fibrillation in the ED. Also noted to have a UTI. Etiology of seizure is unknown, but could be provoked due to underlying UTI. MRI brain was normal. - Routine EEG - Increase Keppra to 1000mg BID - Discussed no driving until seizure free for 6 months - Follow-up in Neurology clinic in about 3 months for hosptal follow-up Subjective Date/time seen: 10/03/22 12:38 Interval history: Robert Escalera is a 72 year old male with a history of hypertension, type 2 diabetes mellitus, coronary artery disease s/p CABG who presented initially due to shortness of breath. Patient developed difficulty breathing while brushing his teeth. called EMS at that time and patient was brought to [facility] ED. In the ED, patient was noted to have a seizure. Patient was given a dose of Ativan which stopped the seizure. Patient does not have any prior history of seizures. In the ED, his CT head was normal. His EKG showed atrial fibrillation with RVR. Patient did not have a prior known history of atrial fibrillation. Patient was eventually converted to sinus rhythm. His UA was concerning for UTI. Since admission, patient has had several episodes concerning for seizure described as right facial pulling and unresponsiveness, lasting less than a minute. He was given a Keppra 1000mg load and started on maintenance Keppra. Patient reported one episode of word finding difficulty while talking to his friends and felt like he was going to go into a seizure but didn't. He has not had any obvious seizures since being started on Keppra. His MRI brain was normal. Review of Systems Constitutional: Constitutional: Reports no additional constitutional complaints Eyes: Eyes: Reports no additional eye complaints ENT: Reports system reviewed and no additional complaints, except as documented Cardiovascular: Cardiovascular: Reports no additional cardiovascular complaints Respiratory: Respiratory: Reports no additional respiratory complaints Gastrointestinal: Gastrointestinal: Reports no additional gastrointestinal complaints Genitourinary: Comments: urinary retention Musculoskeletal: Musculoskeletal: Reports no additional musculoskeletal complaints Integumentary/Breasts: Skin/Breast: Reports system reviewed and no additional complaints, except as docu Neurologic: Reports as per HPI Psychiatric: Psychiatric: Reports no additional psychiatric complaints Exam Const: General: comfortable and no acute distress HENMT: Mouth: Yes moist mucous membranes Eyes: Pupils: Equal, round and reactive pupils present EOM: EOMs intact bilaterally Resp: Effort & Inspection: normal respiratory effort Skin: General skin exam: normal color Neuro: Other: Alert, awake, EOMI, face symmetric, tongue protrudes midline, palate midline. Strength 5/5 throughout. Sensation intact throughout, FNF normal bilaterally. Language comprehension and fluency intact. Extrem: General: normal to inspection Psych: Mental Status: mental status grossly normal Affect: normal affect Objective Data Vital Signs Vital Signs: Vital Signs - 24 hr 10/02/22 14:00 10/02/22 16:00 10/02/22 16:00 Temperature Pulse Rate 77 64 Respiratory Rate Blood Pressure Pulse Oximetry Oxygen Delivery Room Air 10/02/22 16:00 10/02/22 18:00 10/02/22 20:00 Temperature 36.
--- NOTE | 2022-10-03 12:46 | PM.IMPN ---
Progress Note: A&P Assessment and Plan (1) Seizure: Code(s): R56.9 - Unspecified convulsions Status: Acute Assessment and Plan: New onset seizure with aphasia. Ativan was given with control of seizure but another seizure again as a complex partial involving right face aborted spontaneously. Lactic acidosis was elevated which is normalized. Loaded with Keppra and currently on 750mg IV Q12. Neurology was consulted and is following along. CT head is negative for any significant abnormality. UDS negative. He does no drink alcohol. Ammonia level is high as well at 216 but not repeated. TSH is normal. MRI brain normal. EEG ordered. Continue seizure precautions. Add peridex (2) Aphasia: Code(s): R47.01 - Aphasia Status: Acute Assessment and Plan: Related to the seizure. As above. (3) Atrial fibrillation with RVR: Code(s): I48.91 - Unspecified atrial fibrillation Status: Acute Assessment and Plan: Atrial fibrillation with rapid ventricular rate in rates 150s and was started on Cardizem drip. Back in sinus rhythm. We resumed carvedilol. Cardiology consulted and they are following along. Plan to start anticoagulation close to discharge. (4) Acute UTI: Code(s): N39.0 - Urinary tract infection, site not specified Status: Acute Assessment and Plan: UA noted from 09/20 and for admission on 10/02. he was treated with Keflex prior to admission. Urine culture from 09/20/2022 showing 100 K non-uropathogenic organisms. UCx from 10/02 is pending. Contineu Rocephin (5) Acute urinary retention: Code(s): R33.8 - Other retention of urine Status: Acute Assessment and Plan: Urinary retention with Sarkar placed. Straight cath in the ER reveal 1.4 L of urine. Start Proscar. Hold Flomax given the soft BP. Follow up with Urology as outpatient. (6) Acute hypokalemia: Code(s): E87.6 - Hypokalemia Status: Acute Assessment and Plan: Potassium 2.9 on admission. This has been replaced. Mag was 2.4. Follow. (7) Type 2 diabetes mellitus without complications: Qualifiers: Diabetes mellitus long distance operator insulin use: without long distance operator use Qualified Code(s): E11.9 - Type 2 diabetes mellitus without complications Code(s): E11.9 - Type 2 diabetes mellitus without complications Status: Acute Assessment and Plan: A1c 10.4. The patient's blood glucose was reviewed on 10/03 Glucose remains poorly controlled. Continue AccuCheks covering with sliding scale. Hypoglycemia protocol available as needed. Add back Amaryl (8) Benign essential hypertension: Code(s): I10 - Essential (primary) hypertension Status: Acute Assessment and Plan: Patient's blood pressure was reviewed on 10/03 Blood pressure remains well controlled except soft this morning. Will continue current medications for now. (9) CAD (coronary artery disease): Code(s): I25.10 - Atherosclerotic heart disease of [place] coronary artery without angina pectoris Status: Acute Assessment and Plan: coronary artery disease status post CABG. Continue medical management with Coreg, Lipitor and ASA. Plan Hyperammonemia - unclear etiology but felt related to the seizure. Right upper quadrant US normal. # DVT prophylaxis: SCDs # code status full code Subjective Date/time seen: 10/03/22 12:46 Interval history: 72yo male with HTN, DM, CAD s/p CABG who presented initially due to shortness of breath. In the ED, patient was noted to have a seizure. Patient was given a dose of Ativan which stopped the seizure. Patient does not have any prior history of seizures. Since admission, patient has had several episodes concerning for seizure described as right facial pulling and unresponsiveness, lasting less than a minute. He was given a Keppra 1000mg load and started on maintenance Keppra. Assuming care. Chart re
[2022-10-03] MEDS: FINASTERIDE 5 MG TABLET PO (14:14)
[2022-10-03] MEDS: metFORMIN HCL 500 MG TABLET 1000 MG PO (16:12)
[2022-10-03] MEDS: GLIMEPIRIDE 2 MG TABLET PO (16:13)
[2022-10-03 17:27] LABS: Glucose Point of Care 304 mg/dl (65-105)
[2022-10-03 20:17] LABS: Glucose Point of Care 230 mg/dl (65-105)
[2022-10-03] MEDS: CHLORHEXIDINE GLUCONATE 0.12% ORAL RINSE 473 ML BTL (*BKC) 15 ML SWISH/SPIT (21:18)
[2022-10-04] VITALS (11 sets, daily range): BP systolic 102–114; BP diastolic 51–56; PULSE 56–74; RESP 12–20; TEMP 36.3–36.6; O2SAT 97–98
[2022-10-04 02:40] LABS: Ammonia < 9 umol/L (9-30); Anion Gap 1 mmol/L (8-16); Blood Urea Nitrogen 8 mg/dL (9-20); Calcium 7.8 mg/dL (8.4-10.2); Carbon Dioxide 31 mmol/L (22-30); Chloride 103 mmol/L (98-107); Estimated CRCL calculation 102 ml/min; Estimated Glomerular Filt Rate > 60; Glucose 134 mg/dL (65-110); Potassium 3.6 mmol/L (3.4-5.0); Sodium 135 mmol/L (137-145)
[2022-10-04] MEDS: POTASSIUM CHLORIDE INJ 40 MEQ in SODIUM CHLORIDE 0.9% IV 500 ML 130 MEQ IVPB (03:05)
--- NOTE | 2022-10-04 03:41 | PC.NURSE ---
At 0035, patient had a 15 beat run of v-tach. Asymptomatic. Dr. Meredith was called at 0110. Orders given and completed.
[2022-10-04 08:26] LABS: Glucose Point of Care 133 mg/dl (65-105)
[2022-10-04] MEDS: cefTRIAXone 2 GM/NS 100 ML 2 GM/100 ML BAG IVPB (08:42)
[2022-10-04] MEDS: carvediloL 25 MG TABLET PO (08:43)
[2022-10-04] MEDS: OMEGA 3 POLYUNSAT FATTY ACIDS 1 GM CAP PO ×2 (08:43→17:22)
[2022-10-04] MEDS: levETIRAcetam 1000MG/NACL100ML 1,000 MG/100 ML BAG 400 MG IVPB (08:43)
[2022-10-04] MEDS: metFORMIN HCL 500 MG TABLET 1000 MG PO ×2 (08:44→17:21)
[2022-10-04] MEDS: OPTI-GEN TAB 1 TABLET PO (08:45)
[2022-10-04] MEDS: ATORVASTATIN 40 MG TABLET 80 MG PO (08:45)
[2022-10-04] MEDS: CHOLECALCIFEROL 1,000 UNITS TABLET 1000 UNITS PO (08:45)
[2022-10-04] MEDS: FINASTERIDE 5 MG TABLET PO (08:45)
[2022-10-04] MEDS: lisinopriL 10 MG TABLET PO (08:45)
[2022-10-04] MEDS: ACIDOPHILUS/BULGARICUS CHEWABLE TABLET 3 TABLET PO (08:45)
[2022-10-04] MEDS: GLIMEPIRIDE 2 MG TABLET PO ×2 (08:45→17:22)
[2022-10-04] MEDS: ASCORBIC ACID 500 MG TABLET 1000 MG PO (08:46)
--- NOTE | 2022-10-04 10:46 | P.NEURO_ITS ---
Neurology EEG Report General Information Date of Study: 10/03/22 TEST Routine EEG DIAGNOSIS New onset seizure CONDITION OF RECORDING Awake, drowsy, asleep EEG NUMBER [id number] CLINICAL HISTORY Patient presented with new onset seizure described as unresponsiveness with right facial twitching. He was also found to have a UTI during the admission. EEG DESCRIPTION During the awake state with eyes closed the background consists of 10 Hz posterior dominant rhythm which attenuates appropriately with eye opening. The recording is continuous. There is a well developed anterior-posterior gradient. No significant asymmetries of background activities are noted. With drowsiness there is waxing and waning of the dominant rhythm with eventual replacement by a mixture of beta, alpha, and theta activity. As the patient enters stage II sleep, symmetrical spindles and K-complexes are present. Arousal is unremarkable. There are rare sharp transients noted in the left, midtemporal region (T3), during sleep. No electrographic seizures were observed. Hyp erventilation and photic stimulation were not performed. IMPRESSION This is an abnormal routine EEG recorded in awake, drowsy, and asleep states due to the presence of rare sharp transients noted in the left midtemporal region. This is suggestive of decreased threshold to have seizures from a focal onset mechanism. There are no electrographic seizures identified during the recording. Clinical correlation is recommended.
[2022-10-04 11:56] LABS: Glucose Point of Care 218 mg/dl (65-105)
[2022-10-04] MEDS: ASPIRIN 81 MG ENTERIC TABLET PO (11:56)
[2022-10-04] MEDS: CHLORHEXIDINE GLUCONATE 0.12% ORAL RINSE 473 ML BTL (*BKC) 15 ML SWISH/SPIT (11:56)
[2022-10-04] MEDS: INSULIN ASPART (*BKC) 100 UNITS/ML SUB-Q (12:06)
--- NOTE | 2022-10-04 15:54 | PM.DS ---
DS: Admitting Diagnosis Discharge Date 10/04/22 Admitting Diagnosis Shortness of breath DS: Discharge Diagnosis Discharge Diagnosis (1) Seizure: Code(s): R56.9 - Unspecified convulsions Status: Acute (2) Aphasia: Code(s): R47.01 - Aphasia Status: Acute (3) Atrial fibrillation with RVR: Code(s): I48.91 - Unspecified atrial fibrillation Status: Acute (4) Acute UTI: Code(s): N39.0 - Urinary tract infection, site not specified Status: Acute (5) Acute urinary retention: Code(s): R33.8 - Other retention of urine Status: Acute (6) Acute hypokalemia: Code(s): E87.6 - Hypokalemia Status: Acute (7) Type 2 diabetes mellitus without complications: Qualifiers: Diabetes mellitus terminal make up operator insulin use: without terminal make up operator use Qualified Code(s): E11.9 - Type 2 diabetes mellitus without complications Code(s): E11.9 - Type 2 diabetes mellitus without complications Status: Acute (8) Benign essential hypertension: Code(s): I10 - Essential (primary) hypertension Status: Acute (9) CAD (coronary artery disease): Code(s): I25.10 - Atherosclerotic heart disease of [place] coronary artery without angina pectoris Status: Acute DS: Summary Hospital Course Reason for hospitalization: 72yo male with HTN, DM, CAD s/p CABG who presented initially due to shortness of breath.? Please see H&P for details. Hospital Course: In the ED, patient was noted to have a seizure. New onset seizure with associated aphasia. Ativan was given with control of seizure but another seizure again as a complex partial involving right face aborted spontaneously.? Lactic acidosis was elevated which has normalized.? Loaded with Keppra and was on 750mg IV Q12. Neurology was consulted and followed along. CT head was negative for any significant abnormality.? UDS negative.? He does not drink alcohol. Ammonia level was high as well at 216 but normal on repeat. TSH normal. MRI brain normal. EEG showing: This is an abnormal routine EEG recorded in awake, drowsy, and asleep states due to the presence of rare sharp transients noted in the left midtemporal region. This is suggestive of decreased threshold to have seizures from a focal onset mechanism. There are no electrographic seizures identified during the recording. Clinical correlation is recommended. Keppra was advanced to 1000mg Q12h. Atrial fibrillation with rapid ventricular rate with rates 150's which is new for this patients. He was started on Cardizem drip and converted to normal sinus rhythm.?Coreg resumed. Cardiology consulted and they followed along. [id number] of 4. Anticoagulation started close to discharge. UA noted from 09/20 and he was treated with Keflex prior to admission.? Urine culture from 09/20/2022 showing 100 K non-uropathogenic organisms. UCx from this admission was negative. Urinary retention with straight cath in the ER revealing 1.4 L of urine. Sarkar placed. Started Proscar. Holding Flomax given the soft BP. Follow up with Urology as outpatient. Potassium 2.9 on admission. This was replaced. A1c 10.4. The patient's blood glucose was monitored closely with AccuCheks covering with sliding scale.? Hypoglycemia protocol was available as needed.?hx of noncompliance. Compliance was encouraged. Glucose better with resuming home meds. He overall did well and was able to be discharged on 10/04/22. Status at Discharge Cognitive/behavioral status at discharge: Stable Time Spent with Patient Time attestation: Total time spent providing and/or coordinating discharge services: 35 minutes Time spent: Greater than 30 minutes Exam Narrative: AF 97.9 102/51 63 12 97% ra Gen - NARD Chest - CTA bilaterally, nml RR CV - RRR S1/S2. Tele showing one episode of 15 beat run of NSVT (AFib with aberancy?) Abd - Soft, NT/ND, Positive BS - Sarkar secured draining clear yellow urine Ext - No pe
--- NOTE | 2022-10-04 16:45 | PCCCNOTE ---
Phone call received from Alvina about patient discharging on Eliquis. It is not a home med, Called to [facility], Asked about Prior Auth for Eliquis 5mg Q12 Qty 60 RF1, per [facility] Medications on Discharge Plan. Prescription ran and it does not require prior auth and will cost 47 dollars a month. Called back to [facility] on IM[facility], information provided. She will discuss pricing with patient and call back to care coordination if any further concerns with cost.
[2022-10-04] MEDS: POTASSIUM CHLORIDE 20 MEQ TABLET 40 MEQ PO (17:21)
[2022-10-04 18:53] LABS: Glucose Point of Care 161 mg/dl (65-105)
== END 2022-10-04 18:00 | disposition home or self-care (01) | DRG 101 ==
LOC: ANHED 06:03 → ANHIMU 07:19
PROVIDERS: Internal Medicine; Admitting Provider Internal Medicine; Emergency Provider Emergency Medicine; PCP Internal Medicine; Visit Provider Internal Medicine
DX: R56.9 Unspecified convulsions (principal); R47.01 Aphasia; N39.0 Urinary tract infection, site not specified; I42.9 Cardiomyopathy, unspecified; E11.65 Type 2 diabetes mellitus with hyperglycemia; E78.5 Hyperlipidemia, unspecified; E87.6 Hypokalemia; E78.2 Mixed hyperlipidemia; I25.10 Atherosclerotic heart disease of native coronary artery without angina pectoris; I48.0 Paroxysmal atrial fibrillation; I10 Essential (primary) hypertension; R33.8 Other retention of urine; Z95.1 Presence of aortocoronary bypass graft; Z79.82 Long term (current) use of aspirin; Z87.891 Personal history of nicotine dependence; Z91.148 Patient's other noncompliance with medication regimen for other reason; Z79.84 Long term (current) use of oral hypoglycemic drugs
CPT/HCPCS: 36415; 70450; 70553; 71045; 76705; 80048; 80053; 80307; 81001; 82140; 82948; 83036; 83605; 83735; 84443; 84484; 85025; 87040; 87086; 92523; 92610; 93005; 95816; 96365; 96375; 99285; A4248; A9270; A9577; C8929; J0696; J1815; J1953; J3480; J7040; Q9957

== ENCOUNTER 2023-01-30 08:18 | Outpatient (CLI) | payer MEDICARE, SELFPAY ==
--- NOTE | ~2023-01-30 | US_ITS ---
EXAMINATION: US aorta DATE: 01/30/2023 09:27 INDICATION: Abdominal aortic aneurysm screening. TECHNIQUE: Grayscale, color Doppler, and pulsed Doppler images of the aorta and common iliac arteries were obtained. COMPARISON: None. FINDINGS: The aorta is normal in caliber and demonstrates atherosclerosis. The right common iliac artery is nor mal in caliber. The left common iliac artery is normal in caliber. IMPRESSION: 1. Aortic atherosclerosis. No aneurysm. Reviewed, dictated and finalized at location A.
== END 2023-01-30 08:19 | disposition home or self-care (01) ==
PROVIDERS: PCP Family Medicine; Visit Provider Family Medicine
DX: Z87.891 Personal history of nicotine dependence (principal); I70.0 Atherosclerosis of aorta
CPT/HCPCS: 76775